=== PATIENT | male | born 2000 | race African-American/Black ===

== ENCOUNTER 2023-05-26 17:10 | Emergency (ER) | payer SELFPAY ==
[~2023-05-26] VITALS: Ht 180.3 cm; Wt 100.0 kg
[2023-05-26 17:42] VITALS: BP 147/78; O2SAT 100
[2023-05-26] MEDS ORDERED: IBUP-2029 MT (18:15)
[2023-05-26 18:38] VITALS: PULSE 74; RESP 16; TEMP 98.9
== END 2023-05-26 18:39 | disposition home or self-care (01) ==
LOC: ER 17:48
DX: S62.211A Bennett's fracture, right hand, initial encounter for closed fracture (principal); G89.11 Acute pain due to trauma; W10.9XXA Fall (on) (from) unspecified stairs and steps, initial encounter; Y93.89 Activity, other specified; Y92.89 Other specified places as the place of occurrence of the external cause; Y99.8 Other external cause status
CPT/HCPCS: 29125; 73140; 99283